=== PATIENT | male | born 1980 | race Two or more races ===

== ENCOUNTER 2024-10-28 17:34 | Inpatient (IN) | payer OTHER, BC ==
[~2024-10-28] VITALS: Ht 180.3 cm; Wt 173.7 kg
[2024-10-28] MEDS: HYDROcodone-ACET 10/325MG TAB PO ONE (18:13)
[2024-10-28] MEDS: KETOROLAC TROMETH 60MG/2ML VIAL IM ONE (18:13)
[2024-10-28 18:21] LABS: Basophils # (auto) 0 10 ^3/uL (0-0.2); Basophils % (auto) 0.6 % (0.0-2.0); Eosinophils # (auto) 0.2 10 ^3/uL (0-0.8); Eosinophils % (auto) 2.3 % (0.0-7.0); Hematocrit 46.1 % (41.0-53.0); Hemoglobin 15.8 g/dL (13.5-17.5); Lymphocytes # (auto) 1.8 10 ^3/uL (0.4-5.4); Lymphocytes % (auto) 21.8 % (10.0-50.0); Mean Corpuscular Hgb Conc. 34.2 g/dL (32.0-36.0); Mean Corpuscular Volume 84.8 fL (80.0-100.0); Monocytes # (auto) 0.7 10 ^3/uL (0-1.3); Monocytes % (auto) 8.8 % (0.0-12.0); Neutrophils # (auto) 5.3 10 ^3/uL (1.6-8.6); Neutrophils % (auto) 66.5 % (37.0-80.0); Nucleated Red Blood Cells % 0.1 %; Platelet Count (auto) 267 10^3/uL (140-450); Red Blood Cells 5.44 10^6/uL (4.5-5.90); Red Cell Distribution Width 14.7 % (11.8-14.3)
[2024-10-28 18:27] LABS: Chloride 106 mmol/L (98-107); Potassium 4.1 mmol/L (3.5-5.1); Sodium 143 mmol/L (136-145)
[2024-10-28 18:28] LABS: Anion Gap 11 (5-15); Carbon Dioxide 26 mmol/L (20-31)
[2024-10-28 18:33] LABS: BUN/Creatinine Ratio 9.6 (10.0-20.0); Blood Urea Nitrogen 12 mg/dL (9-23); Glucose 170 mg/dL (74-106)
--- NOTE | 2024-10-28 18:58 | DVH ---
Exam: CT CT AB PEL WO CON-NO ORAL OR IV History: Flank pain/kidney stone concerns Comparison Study: None TECHNIQUE: Multidetector CT of the abdomen was performed from lung bases to pubic symphysis. Imaging was performed without IV contrast. Axial, coronal and sagittal multiplanar reformats were obtained fr om the axial data set by the technologist. Radiation Dose Information: CT Dose: CTDI volume is 36.11 mGy. Dose-length product is 2271.73 mGy*cm FINDINGS: Evaluation of solid organs is limited due to lack of intravenous contrast use. Findings: Lung Bases: No acute or significant lung base finding. Normal heart size. No pleural or pericardial effusion. Liver: The liver is normal in size. No focal lesions. Gallbladder and Biliary Tree: Unremarkable Spleen: Unremarkable Pancreas: The pancreas is grossly normal in appearance. Adrenal Glands: Unremarkable Kidneys: Punctate nonobstructing calculus right kidney. 7-8 mm partially obstructing calculus mid lef t ureter. Bladder: Grossly unremarkable for degree of distention. Bowel: The stomach is grossly normal in appearance. Small bowel and colon are normal in caliber and d istribution. The appendix is not visualized; however, no secondary findings of acute appendicitis id entified. Ascites: Absent Lymphadenopathy: No mesenteric, retroperitoneal or periportal lymphadenopathy. Abdominal Wall and Mesentery: Unremarkable. Vasculature: The visualized abdominal aorta is normal in size and caliber. Evaluation of abdominal a nd pelvic vessels is limited due to lack of intravenous contrast. Pelvic Organs: Unremarkable Musculoskeletal: No aggressive focal bony lesions, acute fractures or dislocation. Soft tissues: Unremarkable IMPRESSION: 1. Punctate nonobstructing calculus right kidney 2. 7-8 mm partially obstructing calculus mid left ureter. 3. 4.6 cm fat containing left inguinal hernia. Radiation optimization: All CT scans at this facility use at least one of these dose optimization te chniques: automated exposure control mA and/or kV adjustment per patient size (includes targeted exa ms where dose is matched to clinical indication) or iterative reconstruction. HS:Y
--- NOTE | 2024-10-28 19:08 | ED.PDOC ---
General HPI Comments This patient is a pleasant but severely morbidly obese 44-year-old male who arrives the ED today for evaluation of left-sided flank pain concerns that began last night and have continued through today. Patient denies any history of kidney stones. Patient denies any fever nausea or vomiting. Patient denies any blood in his urine. Patient denies any known musculoskeletal concerns or lifting or movement injuries. Vital signs were stable at arrival. Chief Complaint: Flank Pain Time Seen by MD: 17:40 Reviewed notes: Nurses Notes Information Source: Patient Mode of Arrival: Ambulatory Severity: Moderate Inability to void: None Timing: Days Duration: Since onset Prehospital treatment: None Onset: Spontaneous Symptoms: None History of: None Location: (L)Flank associated signs and symptoms: Flank Pain Past Medical History PAST MEDICAL HISTORY: Denies Surgical History: Denies all surgeries Family History Family History: Reviewed,noncontributory to illness, No family hx of Cancer, No family hx of DM, No family hx of Heart iglesia, No family hx of HTN, No family hx ofKidney iglesia, No family hx of Liver iglesia, No family hx of Lung iglesia, No family hx of Stroke Social History Smoker: Non-Smoker Alcohol: Denies ETOH Use Drugs: Denies Drug Use Lives In: Home Constitutional: denies: chills, diaphoresis, fatigue, fever, malaise, sweats, weakness, others EENTM: denies: blurred vision, double vision, ear bleeding, ear discharge, ear drainage, ear pain, ear ringing, eye pain, eye redness, hearing loss, mouth pain, mouth swelling, nasal discharge, nose bleeding, nose congestion, nose pain, photophobia, tearing, throat pain, throat swelling, voice changes, others Respiratory: denies: cough, hemoptysis, orthopnea, SOB at rest, shortness of breath, SOB with excertion, stridor, wheezing, others Cardiovascular: denies: chest pain, dizzy spells, diaphoresis, Dyspnea on exertion, edema, irregular heart beat, left arm pain, lightheadedness, palpitations, PND, syncope, others Gastrointestinal: denies: abdomen distended, abdominal pain, blood streaked bowels, constipated, diarrhea, dysphagia, difficulty swallowing, hematemesis, melena, nausea, poor appetite, poor fluid intake, rectal bleeding, rectal pain, vomiting, others Genitourinary: reports: flank pain; denies: burning, dysuria, frequency, hematuria, incontinence, penile discharge, penile sore, pain, testicle pain, testicle swelling, urgency, others Neurological: denies: dizziness, fainting, headache, left sided numbness, left sided weakness, numbness, paresthesia, pre-existing deficit, right sided numbness, right sided weakness, seizure, speech problems, tingling, tremors, weakness, others Musculoskeletal: denies: back pain, gout, joint pain, joint swelling, muscle pain, muscle stiffness, neck pain, others Integumetry: denies: bruises, change in color, change in hair/nails, dryness, laceration, lesions, lumps, rash, wounds, others Allergic/Immunocompromised: denies: Difficulty Healing, Frequent Infections, Hives, Itching, others Hematologic/Lymphatic: denies: anemia, blood clots, easy bleeding, easy bruising, swollen glands, others Endocrine: denies: excessive hunger, excessive sweating, excessive thirst, excessive urination, flushing, intolerance to cold, intolerance to heat, unexplained weight gain, unexplained weight loss, others Psychiatric: denies: anxiety, bipolar disorder, depression, hopeless, panic disorder, schizophrenia, sleepless, suicidal, others Physical Exam General Appearance: Moderate Distress (Due to left-sided flank pain concerns.), Obese HEENT: Normal ENT Inspection, Pharynx Normal, TMs Normal Neck: Full Range of Motion, Non-Tender, Normal, Normal Inspection Respiratory: Chest Non-Tender, Lungs Clear, No Accessory Muscle Use, No Respiratory Distress, Normal Breath Sounds Cardiovascular: No Edema, No JVD, No Murmur, No Gallop, Normal Peripheral Pul ses, Regular Rate/Rhythm Breast Exam: Deferred Gastrointestinal: Other (Left-sided flank pain that has diffuse and extending into the left-sided abdomen. Difficult to assess due to body habitus.) Genitalia: Deferred Pelvic: Deferred Rectal: Deferred Extremities: No calf tenderness, Normal capillary refill, Normal inspection, Normal range of motion, Non-tender, No pedal edema Neurologic: Alert, No Motor Deficits, Normal Affect, Normal Mood, No Sensory Deficits Cerebellar Function: Normal Reflexes: Normal Skin: Dry, Normal Color, Warm Lymphatic: No Adenopathy Was a procedure done? Was a procedure done?: No Differential Diagnosis Kidney stone (Female): Other (Kidney stone, pyelonephritis, UTI, musculoskele nola concern, sepsis, electrolyte abnormality) X-Ray, Labs, Meds, VS Vital Signs Date Time Temp Pulse Resp B/P (MAP) Pulse Ox O2 Delivery O2 Flow Rate FiO2 10/28/24 17:40 97.5 68 20 144/83 (103) 97.5 Lab Test 10/28/24 18:02 Range/Units White Blood Count 8.0 4.4-10.8 10^3/uL Red Blood Count 5.44 4.5-5.90 10^6/uL Hemoglobin 15.8 13.5-17.5 g/dL Hematocrit 46.1 41.0-53.0 % Mean Corpuscular Volume 84.8 80.0-100.0 fL Mean Corpuscular Hemoglobin 29.0 28.0-32.0 pg Mean Corpuscular Hemoglobin Concent 34.2 32.0-36.0 g/dL Red Cell Distribution Width 14.7 H 11.8-14.3 % Platelet Count 267 140-450 10^3/uL Mean Platelet Volume 9.1 6.9-10.8 fL Neutrophils (%) (Auto) 66.5 37.0-80.0 % Lymphocytes (%) (Auto) 21.8 10.0-50.0 % Monocytes (%) (Auto) 8.8 0.0-12.0 % Eosinophils (%) (Auto) 2.3 0.0-7.0 % Basophils (%) (Auto) 0.6 0.0-2.0 % Neutrophils # (Auto) 5.3 1.6-8.6 10 ^3/uL Lymphocytes # (Auto) 1.8 0.4-5.4 10 ^3/uL Monocytes # (Auto) 0.7 0-1.3 10 ^3/uL Eosinophils # (Auto) 0.2 0-0.8 10 ^3/uL Basophils # (Auto) 0 0-0.2 10 ^3/uL Nucleated Red Blood Cells 0.1 % Sodium Level 143 136-145 mmol/L Potassium Level 4.1 3.5-5.1 mmol/L Chloride Level 106 98-107 mmol/L Carbon Dioxide Level 26 20-31 mmol/L Anion Gap 11 5-15 Blood Urea Nitrogen 12 9-23 mg/dL Creatinine 1.25 0.700-1.30 mg/dL Glomerular Filtration Rate Calc 72 >90 mL/min BUN/Creatinine Ratio 9.6 L 10.0-20.0 Serum Glucose 170 H 74-106 mg/dL Calcium Level 10.0 8.7-10.4 mg/dL Current Medications Medications (Trade) Dose Ordered Sig/Jesenia Route Start Time Stop Time Status Last Admin Ketorolac Tromethamine (Toradol Injection) 30 mg ONCE ONCE IM 10/28/24 18:00 10/28/24 18:01 DC 10/28/24 18:13 Acetaminophen/ Hydrocodone Bitart ([place] 10/325MG Tab) 1 tab ONCE ONCE PO 10/28/24 18:00 10/28/24 18:01 DC 10/28/24 18:13 X-Ray, Labs, Meds, VS Comment All studies performed the ED were evaluated by me personally. Serum laboratorie s were unremarkable for any systemic concerns. CT evaluation of abdomen confirmed a left-sided occlusive stone. Advised patient of the findings in the need for admission. Patient will be admitted for management of his kidney stone concerns. Time of 1ST Reevaluation: 19:07 Reevaluation 1ST: Improved Consultation: PCP Patient Education/Counseling: Diagnosis, Treatment Family Education/Counseling: Diagnosis, Treatment Departure 1 Departure Time of Disposition: 19:07 Impression: Primary Impression: Kidney stone on left side Disposition: ADMITTED INPATIENT Condition: Stable Discharged With: Self Critical Care Note Critical Care Time?: No Stability Stability form required: No Heart Score Heart Score: Heart Score Response (Comments) Value History N/A 0 EKG N/A 0 Age N/A 0 Risk Factors N/A 0 Troponin N/A 0 Total 0 RIDDHI HAGER PAC Oct 28, 2024 19:08
[2024-10-28] MEDS ORDERED: ACETAMINOPHEN 325 MG TAB PO PRN (21:15)
[2024-10-28] MEDS ORDERED: DOCUSATE SOD 100 MG CAP PO PRN (21:15)
[2024-10-28] MEDS ORDERED: MORPHINE SULFATE INJ 2 MG/ml SYRG IV PRN ×2 (21:15→22:00)
--- NOTE | 2024-10-28 21:56 | DVHHP2 ---
History of Present Illness Reason for Visit: Kidney stone on left side History of Present Illness The patient is a 44-year-old male morbidly obese who denies past medical history presented to [facility] ED with complaint of left-sided flank pain. Patient reports symptoms progressively get worse with severe left-sided flank pain, nonradiating, rating 8/10 numeric scale, getting worse that prompted this visit. Patient was seen and evaluated in the ED, laboratory data shows WBC 8.0, platelets 267, sodium 143, potassium 4.1, BUN 12, creatinine 1.25, GFR 72, glucose 170, calcium 10.0, blood pressure 127/75, heart rate 68, temperature 97.8 F, O2 saturation 96% on room air. Abdomen/pelvis CT revealing punctuate nonobstructing calculus right kidney, 7-8 mm partially obstructing calculus mid left ureter, 4.6 cm fat stranding left inguinal hernia. Patient was given Toradol 30 mg IM x1, please see medication orders section in the computer. On my assessment, patient denied chest pain, no headache, no dizziness, no diaphoresis, no shortness of breath, no diarrhea, no nausea, no vomiting, no fever, no chills. Patient was admitted for further evaluation and medical management. Past Medical History Denies past medical history Past Surgical History Denies all surgeries Family History Reviewed, noncontributory to the management of this case. Past Social History The patient lives at home, denies smoking, alcohol or illicit drugs abuse. Review of Systems Constitutional: No: Fever, Chills, Sweats, Weakness, Malaise, Other Eyes: No: Pain, Vision change, Conjunctivae inflammation, Eyelid inflammation, Other, Redness ENT: No: Ear pain, Ear discharge, Nose pain, Nose discharge, Nose congestion, Mouth pain, Mouth swelling, Throat pain, Throat swelling, Other Respiratory: No: Cough, Dry, Shortness of breath, SOB with excertion, Wheezing, Hemoptysis, Pleuritic Pain, Sputum, Wheezing, Other Cardiovascular: No: Chest Pain, Palpitations, Orthopnea, Paroxysmal Noc. Dyspnea, Edema, Lt Headedness, Other Gastrointestinal: No: Nausea, Vomiting, Abdominal Pain, Diarrhea, Constipation, Melena, Hematochezia, Other Genitourinary: No Dysuria, No Frequency, No Incontinence, No Hematuria, No Retention; Other (Left flank pain) Musculoskeletal: No: other, neck pain, shoulder pain, arm pain, back pain, hand pain, leg pain, foot pain Skin: No: Rash, Lesions, Jaundice, Bruising, Other Neurological: No: Weakness, Numbness, Incoordination, Change in speech, Confusion, Seizures, Other Allergies: Coded Allergies: NO KNOWN ALLERGIES (Unverified , 10/28/24) Medications Current Medications Medications Dose Ordered Sig/Jesenia Route Start Time Stop Time Status Last Admin Dose Admin Acetaminophen/ Hydrocodone Bitart 1 tab Q4HP PRN PO 10/28/24 21:15 UNV Ondansetron HCl 4 mg Q4HP PRN IV 10/28/24 21:15 UNV Docusate Sodium 100 mg BIDPRN PRN PO 10/28/24 21:15 UNV Acetaminophen 650 mg Q6HP PRN PO 10/28/24 21:15 UNV Morphine Sulfate 2 mg Q4HPRN PRN IV 10/28/24 21:15 UNV Sodium Chloride 1,000 ml @ 75 mls/hr [id number] IV 10/28/24 21:15 UNV Exam Vital Signs Vital Signs Date Time Temp Pulse Resp B/P (MAP) Pulse Ox O2 Delivery O2 Flow Rate FiO2 10/28/24 21:43 98.0 78 18 123/82 (96) 95 98.0 General Appearance: Alert, Oriented X3, Cooperative, No acute distress HEENT: Atraumatic, PERRLA, EOMI, Mucous membr. moist/pink Respiratory: Normal air movement Cardiovascular: Regular rate, Normal S1, Normal S2, No murmurs Abdominal: Normal bowel sounds, Soft, No hepatospenomegaly, No masses, Other (Reports tenderness) Extremities: No clubbing, No cyanosis, No edema, Normal pulses, No tenderness/swelling Skin: No rashes, No breakdown, No significant lesion Neuro: Normal gait, Normal speech, Strength at 5/5 X4 ext, Normal tone, Sensation intact, Cranial nerves 3-12 NL Psych/Mental Status: Mental status NL, Mood NL Labs/Xrays Labs Test 10/28/24 18:09 10/28/24 18:02 Range/Units White Blood Count 8.0 4.4-10.8 10^3/uL Red Blood Count 5.44 4.5-5.90 10^6/uL Hemoglobin 15.8 13.5-17.5 g/dL Hematocrit 46.1 41.0-53.0 % Mean Corpuscular Volume 84.8 80.0-100.0 fL Mean Corpuscular Hemoglobin 29.0 28.0-32.0 pg Mean Corpuscular Hemoglobin Concent 34.2 32.0-36.0 g/dL Red Cell Distribution Width 14.7 H 11.8-14.3 % Platelet Count 267 140-450 10^3/uL Mean Platelet Volume 9.1 6.9-10.8 fL Neutrophils (%) (Auto) 66.5 37.0-80.0 % Lymphocytes (%) (Auto) 21.8 10.0-50.0 % Monocytes (%) (Auto) 8.8 0.0-12.0 % Eosinophils (%) (Auto) 2.3 0.0-7.0 % Basophils (%) (Auto) 0.6 0.0-2.0 % Neutrophils # (Auto) 5.3 1.6-8.6 10 ^3/uL Lymphocytes # (Auto) 1.8 0.4-5.4 10 ^3/uL Monocytes # (Auto) 0.7 0-1.3 10 ^3/uL Eosinophils # (Auto) 0.2 0-0.8 10 ^3/uL Basophils # (Auto) 0 0-0.2 10 ^3/uL Nucleated Red Blood Cells 0.1 % Sodium Level 143 136-145 mmol/L Potassium Level 4.1 3.5-5.1 mmol/L Chloride Level 106 98-107 mmol/L Carbon Dioxide Level 26 20-31 mmol/L Anion Gap 11 5-15 Blood Urea Nitrogen 12 9-23 mg/dL Creatinine 1.25 0.700-1.30 mg/dL Glomerular Filtration Rate Calc 72 >90 mL/min BUN/Creatinine Ratio 9.6 L 10.0-20.0 Serum Glucose 170 H 74-106 mg/dL Calcium Level 10.0 8.7-10.4 mg/dL PATIENT: MARSHAL DIAZ ACCT: [id number] UNIT: [id number] : 1980 LOC: ER ROOM / BED: / AGE / SEX: 44 / M ADM STATUS: REG ER SERVICE [id number] ORDERING PHYSICIAN: RIDDHI HAGER PAC PROCEDURE(s): ABPL - CT AB PEL WO CON-NO ORAL OR IV REASON: Flank pain/kidney stone concerns ORDER NUMBER(s): [id number], ACCESSION NUMBER(s): [id number] Exam: CT CT AB PEL WO CON-NO ORAL OR IV History: Flank pain/kidney stone concerns Comparison Study: None TECHNIQUE: Multidetector CT of the abdomen was performed from lung bases to pubic symphysis. Imaging was performed without IV contrast. Axial, coronal and sagittal multiplanar reformats were obtained from the axial data set by the technologist. Radiation Dose Information: CT Dose: CTDI volume is 36.11 mGy. Dose-length product is 2271.73 mGy*cm FINDINGS: Evaluation of solid organs is limited due to lack of intravenous contrast use. Findings: Lung Bases: No acute or significant lung base finding. Normal heart size. No pleural or pericardial effusion. Liver: The liver is normal in size. No focal lesions. Gallbladder and Biliary Tree: Unremarkable Spleen: Unremarkable Pancreas: The pancreas is grossly normal in appearance. Adrenal Glands: Unremarkable Kidneys: Punctate nonobstructing calculus right kidney. 7-8 mm partially obstructing calculus mid left ureter. Bladder: Grossly unremarkable for degree of distention. Bowel: The stomach is grossly normal in appearance. Small bowel and colon are normal in caliber and distribution. The appendix is not visualized; however, no secondary findings of acute appendicitis identified. Ascites: Absent Lymphadenopathy: No mesenteric, retroperitoneal or periportal lymphadenopathy. Abdominal Wall and Mesentery: Unremarkable. Vasculature: The visualized abdominal aorta is normal in size and caliber. Eval uation of abdominal and pelvic vessels is limited due to lack of intravenous contrast. Pelvic Organs: Unremarkable Musculoskeletal: No aggressive focal bony lesions, acute fractures or dislocation. Soft tissues: Unremarkable IMPRESSION: 1. Punctate nonobstructing calculus right kidney 2. 7-8 mm partially obstructing calculus mid left ureter. 3. 4.6 cm fat containing left inguinal hernia. Assessment/Plan Assessment/Plan Acute abdominal pain Hyperglycemia Morbid obesity Kidney stone on left side Plan 1. Admit to med surge unit 2. Breathing treatment 3. Pain control management 4. Management of fluids and electrolytes 5. Consultation for urology/hospitalist 6. Diagnostic tests abdomen/pelvis CT 7. DVT prophylaxis-on aspirin 8. Repeat labs CBC, CMP in a.m. 9. Continue with current medical management 10. Treatment plan discussed with patient and RN. Patient verbalized understanding. Plan discussed with: Patient, Other (RN) My Orders Orders - DARREL ISSA DNP Procedure Category Date Status Time * Urology Consult CONS 10/28/24 Transmitted 21:06 Allergies GORGE 10/28/24 In Process 21:06 Code Status CODE 10/28/24 Transmitted 21:06 2 Gm Sodium Diet DIET 10/29/24 Transmitted Breakfast Oxygen Per Hour RT 10/28/24 Transmitted 21:06 Hydrocodone-Acet PHA 10/28/24 Logged 5/325mg Tab ([place] 21:15 Ondansetron Hcl PHA 10/28/24 Logged (Zofran) 21:15 Docusate Sodium PHA 10/28/24 Logged Capsule (Colace 21:15 Complete Blood Count LAB 10/29/24 Verified 04:00 Comprehensive LAB 10/29/24 Verified Metabolic Panel 04:00 Condition: Serious GORGE 10/28/24 In Process 21:06 Acetaminophen Tablet PHA 10/28/24 Logged (Tylenol Tablet) 21:15 Bedrest With Bathroom GORGE 10/28/24 In Process Privileg 21:06 Morphine Sulfate PHA 10/28/24 Logged Injection 21:15 Sequential GORGE 10/28/24 In Process Compression Device Sod Chl 0.45% (Sodium PHA 10/28/24 Logged Chloride 0.45% Via 21:15 Problem List: (1) Acute abdominal pain (2) Hyperglycemia (3) Morbid obesity (4) Kidney stone on left side Date of Service: Oct 28, 2024 Billing Provider: DARREL ISSA DNP Common Visit Codes: 21703-VAVEAKP INP/OBS CARE (HIGH) DARREL ISSA DNP Oct 28, 2024 21:56
[2024-10-28] MEDS ORDERED: NITROGLYCERIN 0.4 MG SL TAB SL PRN (22:00)
[2024-10-28 22:23] LABS: Urine Bacteria FEW /hpf (None Seen); Urine Blood 3+ /uL (Negative); Urine Budding Yeast OCCASIONAL /hpf (None Seen); Urine Clarity Turbid (Clear); Urine Color Light-Orange (Yellow); Urine Protein, UAD 1+ (Negative); Urine Specific Gravity 1.021 (1.001-1.035); Urine Squamous Epithelial Cell None Seen /hpf (<5); Urine Urobilinogen Normal (Negative); Urine WBC 4 /HPF (0-3); Urine pH 5.5 (5.0-9.0)
[2024-10-28 23:17] VITALS: BP 140/78; PULSE 95; RESP 19; TEMP 98.1; O2SAT 96
[2024-10-29] VITALS (8 sets, daily range): BP systolic 106–135; BP diastolic 63–77; PULSE 70–99; RESP 18–19; TEMP 98–98.5; O2SAT 94–96
[2024-10-29] MEDS: SOD CHL 0.45% 1,000 ML IV SCH (00:01)
[2024-10-29] MEDS: HYDROcodone-ACET 5/325MG TAB PO PRN (00:07)
[2024-10-29 05:16] LABS: Basophils # (auto) 0.1 10 ^3/uL (0-0.2); Basophils % (auto) 0.6 % (0.0-2.0); Eosinophils # (auto) 0.1 10 ^3/uL (0-0.8); Eosinophils % (auto) 1.2 % (0.0-7.0); Hemoglobin 14.8 g/dL (13.5-17.5); Lymphocytes # (auto) 1.8 10 ^3/uL (0.4-5.4); Lymphocytes % (auto) 18.4 % (10.0-50.0); Mean Corpuscular Hemoglobin 29.2 pg (28.0-32.0); Mean Corpuscular Hgb Conc. 34.4 g/dL (32.0-36.0); Mean Corpuscular Volume 85.1 fL (80.0-100.0); Monocytes # (auto) 0.8 10 ^3/uL (0-1.3); Monocytes % (auto) 7.8 % (0.0-12.0); Neutrophils # (auto) 7.1 10 ^3/uL (1.6-8.6); Nucleated Red Blood Cells % 0.1 %; Platelet Count (auto) 240 10^3/uL (140-450); Red Blood Cells 5.05 10^6/uL (4.5-5.90); Red Cell Distribution Width 14.4 % (11.8-14.3); White Blood Cell 9.9 10^3/uL (4.4-10.8)
[2024-10-29 05:40] LABS: Albumin 4.5 g/dL (3.2-4.8); Alkaline Phosphatase 91 U/L (46-116); Anion Gap 11 (5-15); Aspartate Aminotransferase 31 U/L (13-40); BUN/Creatinine Ratio 10.6 (10.0-20.0); Bilirubin, Total 0.8 mg/dL (0.2-1.0); Blood Urea Nitrogen 13 mg/dL (9-23); Calcium 9.9 mg/dL (8.7-10.4); Carbon Dioxide 27 mmol/L (20-31); Chloride 105 mmol/L (98-107); Potassium 3.9 mmol/L (3.5-5.1); Sodium 143 mmol/L (136-145); Total Protein 7.2 g/dL (5.7-8.2)
[2024-10-29 05:48] LABS: Alanine Aminotransferase 40 U/L (7-40); Glucose 107 mg/dL (74-106)
--- NOTE | 2024-10-29 13:19 | DVHINCON2 ---
Date of service: Oct 29, 2024 Referring Physician Hospitalist Reason for Consultation 7 mm left mid ureteral calculus with partial obstruction History of Present Illness Morbidly obese 44-year-old male with 8 mm left ureteral stone has left-sided flank pain. Patient denies any history of kidney stones. Patient denies any fever nausea or vomiting. Patient denies any blood in his urine. Patient denies any known musculoskeletal concerns or lifting or movement injuries. Vital signs were stable at arrival. Chief Complaint: Flank Pain Reviewed notes: Nurses Notes Information Source: Patient Mode of Arrival: Ambulatory Severity: Moderate Inability to void: None Timing: Days Duration: Since onset Prehospital treatment: None Onset: Spontaneous Symptoms: None History of: None Location: (L)Flank associated signs and symptoms: Flank Pain Past Medical History Obesity Family History: Cardiovascular disease G8 FATHER Allergies: Coded Allergies: NO KNOWN ALLERGIES (Unverified , 10/28/24) Home Meds No Active Prescriptions or Reported Meds Current Medications Current Medications Medications (Trade) Dose Ordered Sig/Jesenia Route PRN Reason Start Time Stop Time Status Last Admin Acetaminophen/ Hydrocodone Bitart ([place] 5/325MG Tab) 1 tab Q4HP PRN PO MODERATE PAIN (4-6 PAIN SCALE) 10/28/24 21:15 10/29/24 12:58 Ondansetron HCl (Zofran) 4 mg Q4HP PRN IV NAUSEA / VOMITING 10/28/24 21:15 Docusate Sodium (Colace Capsule) 100 mg BIDPRN PRN PO FOR CONSTIPATION 10/28/24 21:15 Acetaminophen (Tylenol Tablet) 650 mg Q6HP PRN PO PAIN SCALE 1-3 OR TEMP>100.4 10/28/24 21:15 Morphine Sulfate 2 mg Q4HPRN PRN IV SEVERE PAIN (7-10 PAIN SCALE) 10/28/24 21:15 Sodium Chloride 1,000 ml @ 75 mls/hr [id number] IV 10/28/24 21:15 10/29/24 10:35 Nitroglycerin (Ntrostat Sublingual) 0.4 mg Q5MINP PRN SL FOR CHEST PAIN 10/28/24 22:00 Morphine Sulfate 2 mg Q30M PRN IV FOR CHEST PAIN 10/28/24 22:00 Review of Systems Constitutional: denies: chills, diaphoresis, fatigue, fever, malaise, sweats, weakness, others EENTM: denies: blurred vision, double vision, ear bleeding, ear discharge, ear drainage, ear pain, ear ringing, eye pain, eye redness, hearing loss, mouth pain, mouth swelling, nasal discharge, nose bleeding, nose congestion, nose pain, photophobia, tearing, throat pain, throat swelling, voice changes, others Respiratory: denies: cough, hemoptysis, orthopnea, SOB at rest, shortness of breath, SOB with excertion, stridor, wheezing, others Cardiovascular: denies: chest pain, dizzy spells, diaphoresis, Dyspnea on exertion, edema, irregular heart beat, left arm pain, lightheadedness, palpitations, PND, syncope, others Gastrointestinal: denies: abdomen distended, abdominal pain, blood streaked bowels, constipated, diarrhea, dysphagia, difficulty swallowing, hematemesis, melena, nausea, poor appetite, poor fluid intake, rectal bleeding, rectal pain, vomiting, others Genitourinary: reports: flank pain; denies: burning, dysuria, frequency, hematuria, incontinence, penile discharge, penile sore, pain, testicle pain, testicle swelling, urgency, others Neurological: denies: dizziness, fainting, headache, left sided numbness, left sided weakness, numbness, paresthesia, pre-existing deficit, right sided numbness, right sided weakness, seizure, speech problems, tingling, tremors, weakness, others Musculoskeletal: denies: back pain, gout, joint pain, joint swelling, muscle pain, muscle stiffness, neck pain, others Integumetry: denies: bruises, change in color, change in hair/nails, dryness, laceration, lesions, lumps, rash, wounds, others Allergic/Immunocompromised: denies: Difficulty Healing, Frequent Infections, Hives, Itching, others Hematologic/Lymphatic: denies: anemia, blood clots, easy bleeding, easy bruising, swollen glands, others Endocrine: denies: excessive hunger, excessive sweating, excessive thirst, excessive urination, flushing, intolerance to cold, intolerance to heat, unexplained weight gain, unexplained weight loss, others Psychiatric: denies: anxiety, bipolar disorder, depression, hopeless, panic disorder, schizophrenia, sleepless, suicidal, others Vital Signs Vital Signs Date Time Temp Pulse Resp B/P (MAP) Pulse Ox O2 Delivery O2 Flow Rate FiO2 10/29/24 08:42 98.2 83 18 123/74 (90) 95 98.2 10/28/24 23:17 Room Air* 0 21 Physical Exam wt: 382# General Appearance: Moderate Distress (Due to left-sided flank pain concerns.), Obese HEENT: Normal ENT Inspection, Pharynx Normal, TMs Normal Neck: Full Range of Motion, Non-Tender, Normal, Normal Inspection Respiratory: Chest Non-Tender, Lungs Clear, No Accessory Muscle Use, No Respiratory Distress, Normal Breath Sounds Cardiovascular: No Edema, No JVD, No Murmur, No Gallop, Normal Peripheral Pulses, Regular Rate/Rhythm Breast Exam: Deferred Gastrointestinal: Other (Left-sided flank pain that has diffuse and extending into the left-sided abdomen. Difficult to assess due to body habitus.) Genitalia: Deferred Pelvic: Deferred Rectal: Deferred Extremities: No calf tenderness, Normal capillary refill, Normal inspection, Normal range of motion, Non-tender, No pedal edema Neurologic: Alert, No Motor Deficits, Normal Affect, Normal Mood, No Sensory Deficits Cerebellar Function: Normal Reflexes: Normal Skin: Dry, Normal Color, Warm Lymphatic: No Adenopathy Labs/Diagnostic Data Labs Test 10/29/24 04:30 10/28/24 18:09 Range/Units White Blood Count 9.9 4.4-10.8 10^3/uL Red Blood Count 5.05 4.5-5.90 10^6/uL Hemoglobin 14.8 13.5-17.5 g/dL Hematocrit 43.0 41.0-53.0 % Mean Corpuscular Volume 85.1 80.0-100.0 fL Mean Corpuscular Hemoglobin 29.2 28.0-32.0 pg Mean Corpuscular Hemoglobin Concent 34.4 32.0-36.0 g/dL Red Cell Distribution Width 14.4 H 11.8-14.3 % Platelet Count 240 140-450 10^3/uL Mean Platelet Volume 9.0 6.9-10.8 fL Neutrophils (%) (Auto) 72.0 37.0-80.0 % Lymphocytes (%) (Auto) 18.4 10.0-50.0 % Monocytes (%) (Auto) 7.8 0.0-12.0 % Eosinophils (%) (Auto) 1.2 0.0-7.0 % Basophils (%) (Auto) 0.6 0.0-2.0 % Neutrophils # (Auto) 7.1 1.6-8.6 10 ^3/uL Lymphocytes # (Auto) 1.8 0.4-5.4 10 ^3/uL Monocytes # (Auto) 0.8 0-1.3 10 ^3/uL Eosinophils # (Auto) 0.1 0-0.8 10 ^3/uL Basophils # (Auto) 0.1 0-0.2 10 ^3/uL Nucleated Red Blood Cells 0.1 % Sodium Level 143 136-145 mmol/L Potassium Level 3.9 3.5-5.1 mmol/L Chloride Level 105 98-107 mmol/L Carbon Dioxide Level 27 20-31 mmol/L Anion Gap 11 5-15 Blood Urea Nitrogen 13 9-23 mg/dL Creatinine 1.23 0.700-1.30 mg/dL Glomerular Filtration Rate Calc 74 >90 mL/min BUN/Creatinine Ratio 10.6 10.0-20.0 Serum Glucose 107 H 74-106 mg/dL Hemoglobin A1c 6.5 H <5.7 % A1C Calcium Level 9.9 8.7-10.4 mg/dL Total Bilirubin 0.8 0.2-1.0 mg/dL Aspartate Amino Transferase (AST) 31 13-40 U/L Alanine Aminotransferase (ALT) 40 7-40 U/L Alkaline Phosphatase 91 46-116 U/L Total Protein 7.2 5.7-8.2 g/dL Albumin 4.5 3.2-4.8 g/dL Urine Color Light-orange Yellow Urine Clarity Turbid H Clear Urine pH 5.5 5.0-9.0 Urine Specific [place] 1.021 1.001-1.035 Urine Protein 1+ H Negative Urine Ketones Negative Negative Urine Blood 3+ H Negative /uL Urine Nitrite Negative Negative Urine Bilirubin Negative Negative Urine Urobilinogen Normal Negative mg/dL Urine Leukocyte Esterase Negative Negative /uL Urine RBC 245 0 - 3 /hpf Urine Microscopic WBC 4 H 0-3 /HPF Urine Squamous Epithelial Cells None seen <5 /hpf Urine Bacteria Few H None Seen /hpf Urine Yeast (Budding) Occasional None Seen /hpf Urine Glucose Trace Normal mg/dL PATIENT: MARSHAL DIAZ ACCT: [id number] UNIT: [id number] : 1980 LOC: ER ROOM / BED: / AGE / SEX: 44 / M ADM STATUS: REG ER SERVICE 175 ORDERING PHYSICIAN: RIDDHI HAGER PAC PROCEDURE(s): ABPL - CT AB PEL WO CON-NO ORAL OR IV REASON: Flank pain/kidney stone concerns ORDER NUMBER(s): [id number], ACCESSION NUMBER(s): [id number] Exam: CT CT AB PEL WO CON-NO ORAL OR IV History: Flank pain/kidney stone concerns Comparison Study: None TECHNIQUE: Multidetector CT of the abdomen was performed from lung bases to pubic symphysis. Imaging was performed without IV contrast. Axial, coronal and sagittal multiplanar reformats were obtained from the axial data set by the technologist. Radiation Dose Information: CT Dose: CTDI volume is 36.11 mGy. Dose-length product is 2271.73 mGy*cm FINDINGS: Evaluation of solid organs is limited due to lack of intravenous contrast use. Findings: Lung Bases: No acute or significant lung base finding. Normal heart size. No pleural or pericardial effusion. Liver: The liver is normal in size. No focal lesions. Gallbladder and Biliary Tree: Unremarkable Spleen: Unremarkable Pancreas: The pancreas is grossly normal in appearance. Adrenal Glands: Unremarkable Kidneys: Punctate nonobstructing calculus right kidney. 7-8 mm partially obstructing calculus mid left ureter. Bladder: Grossly unremarkable for degree of distention. Bowel: The stomach is grossly normal in appearance. Small bowel and colon are no rmal in caliber and distribution. The appendix is not visualized; however, no secondary findings of acute appendicitis identified. Ascites: Absent Lymphadenopathy: No mesenteric, retroperitoneal or periportal lymphadenopathy. Abdominal Wall and Mesentery: Unremarkable. Vasculature: The visualized abdominal aorta is normal in size and caliber. Evaluation of abdominal and pelvic vessels is limited due to lack of intravenous contrast. Pelvic Organs: Unremarkable Musculoskeletal: No aggressive focal bony lesions, acute fractures or dislocation. Soft tissues: Unremarkable IMPRESSION: 1. Punctate nonobstructing calculus right kidney 2. 7-8 mm partially obstructing calculus mid left ureter. 3. 4.6 cm fat containing left inguinal hernia. Radiation optimization: All CT scans at this facility use at least one of these dose optimization techniques: automated exposure control mA and/or kV adjustment per patient size (includes targeted exams where dose is matched to clinical indication) or iterative reconstruction. HS:Y ATED BY: JOSE MARIA PAGAN Jr., DO DICTATED DATE/TIME: 10/28/241854 SIGNED BY: JOSE MARIA PAGAN Jr., SIGNED DATE/TIME: 10/28/241854 CC: Assessment 8 mm Left mid ureteral stone Partial obstructive uropathy Left flank pain Plan/Recommendation Cystoscopy with left ureteral stent placement and left ESWL on 10/30/24 NPO after midnight Plan discussed with: Patient, Other ALECIA BARLOW MD Oct 29, 2024 13:19
[2024-10-29] MEDS ORDERED: MORPHINE SULFATE 4 MG/ML SYR/VIAL IV PRN (17:45)
[2024-10-29] MEDS: MORPHINE SULFATE 4 MG/ML SYR/VIAL IV PRN (17:52)
--- NOTE | 2024-10-29 19:28 | DVHPN2 ---
Subjective in bed and pain is better Reviewed: H&P, Labs Changes from previous H/P or p: No Changes Eyes: No Pain, No Vision change, No Conjunctivae inflammation, No Eyelid inflammation, No Other, No Redness ENT: No Ear pain, No Ear discharge, No Nose pain, No Nose discharge, No Nose congestion, No Mouth pain, No Mouth swelling, No Throat pain, No Throat swelling, No Other Cardiovascular: No Chest Pain, No Palpitations, No Orthopnea, No Paroxysmal Noc. Dyspnea, No Edema, No Lt Headedness, No Other Respiratory: No Cough, No Dry, No Shortness of breath, No SOB with excertion, No Wheezing, No Hemoptysis, No Pleuritic Pain, No Sputum, No Other Gastrointestinal: No Nausea, No Vomiting, No Abdominal Pain, No Diarrhea, No Constipation, No Melena, No Hematochezia, No Other Genitourinary: No Dysuria, No Frequency, No Incontinence, No Hematuria, No Retention; Other (Left flank pain) Musculoskeletal: No other, No neck pain, No shoulder pain, No arm pain, No back pain, No hand pain, No leg pain, No foot pain Skin: No Rash, No Lesions, No Jaundice, No Bruising, No Other Objective Vitals Vital Signs Date Time Temp Pulse Resp B/P (MAP) Pulse Ox O2 Delivery O2 Flow Rate FiO2 10/29/24 18:22 78 18 123/66 10/29/24 16:51 98.5 95 98.5 10/29/24 08:00 Room Air* 0 21 Intake/Output Intake and Output 10/29/24 07:00 Intake Total 1250 ml Balance 1250 ml Intake Oral 800 ml IV Total 450 ml # Voids 1 General Appearance: Alert, Oriented X3 Cardiovascular: Regular rate, Normal S2 Medications Current Medications Medications Dose Ordered Sig/Jesenia Route Start Time Stop Time Status Last Admin Dose Admin Acetaminophen/ Hydrocodone Bitart 1 tab Q4HP PRN PO 10/28/24 21:15 10/29/24 12:58 1 TAB Ondansetron HCl 4 mg Q4HP PRN IV 10/28/24 21:15 Docusate Sodium 100 mg BIDPRN PRN PO 10/28/24 21:15 Acetaminophen 650 mg Q6HP PRN PO 10/28/24 21:15 Sodium Chloride 1,000 ml @ 75 mls/hr [id number] IV 10/28/24 21:15 10/29/24 10:35 75 MLS/HR Nitroglycerin 0.4 mg Q5MINP PRN SL 10/28/24 22:00 Morphine Sulfate 2 mg Q4HPRN PRN IV 10/29/24 17:45 10/29/24 17:52 2 MG Morphine Sulfate 2 mg Q30M PRN IV 10/29/24 17:45 Laboratory Results Laboratory Tests 10/29/24 04:30 Chemistry Test 10/29/24 04:30 Albumin 4.5 g/dL (3.2-4.8) Calcium Level 9.9 mg/dL (8.7-10.4) Total Protein 7.2 g/dL (5.7-8.2) Coagulation Test 10/29/24 19:17 Prothrombin Time Pending Prothrombin Time INR Pending LFT Test 10/29/24 04:30 Alanine Aminotransferase (ALT) 40 U/L (7-40) Alkaline Phosphatase 91 U/L (46-116) Aspartate Amino Transferase (AST) 31 U/L (13-40) Total Bilirubin 0.8 mg/dL (0.2-1.0) HgA1c, TSH Test 10/29/24 04:30 Hemoglobin A1c 6.5 % A1C (<5.7) H Urinalysis Test 10/28/24 18:09 Urine Color Light-orange (Yellow) Urine Clarity Turbid (Clear) H Urine pH 5.5 (5.0-9.0) Urine Specific [place] 1.021 (1.001-1.035) Urine Protein 1+ (Negative) H Urine Ketones Negative (Negative) Urine Blood 3+ /uL (Negative) H Urine Nitrite Negative (Negative) Urine Bilirubin Negative (Negative) Urine Urobilinogen Normal mg/dL (Negative) Urine Leukocyte Esterase Negative /uL (Negative) Urine RBC 245 /hpf (0 - 3) Urine Microscopic WBC 4 /HPF (0-3) H Urine Squamous Epithelial Cells None seen /hpf (<5) Urine Bacteria Few /hpf (None Seen) H Urine Yeast (Budding) Occasional /hpf (None Urine Glucose Trace mg/dL (Normal) Assessment/Plan Assessment/Plan Acute abdominal pain Hyperglycemia Morbid obesity Kidney stone on left side Continue IV abx and IVF Urology pending Plan discussed with: Patient Date of Service: Oct 29, 2024 Billing Provider: LYN,GRICELDA J MD Common Visit Codes: [id number] INP/OBS CARE(HIGH) GRICELDA NICHOLSON MD Oct 29, 2024 19:28
[2024-10-29 19:55] LABS: Prothrombin Time 10.6 sec (9.3-11.8)
[2024-10-30] VITALS (8 sets, daily range): BP systolic 100–121; BP diastolic 61–79; PULSE 72–97; RESP 14–19; TEMP 97.6–98.5; O2SAT 92–98
[2024-10-30] MEDS: CIPROFLOXACIN 400MG/200ML 200 ML IV ONE (15:26)
[2024-10-30] MEDS ORDERED: fentaNYL CITRATE 5 ML ONE (16:55)
--- NOTE | 2024-10-30 17:28 | DVHNC2 ---
Procedure - OPERATIVE REPORT Pre-op. Diagnosis: Ureteral Stone - LEFT Hydronephrosis - LEFT Flank Pain - LEFT Post-op. Diagnosis: Same as pre-op diagnosis Operation: Extracorporeal Shockwave Lithotripsy - LEFT Cystoscopy, Ureteral stent placement - LEFT Anesthesia: General Indications: Informed Consent: Options were discussed. Treatments can include conservative therapy, Extra-corporeal shockwave therapy (ESWL), Ureteroscopy with laser lithotripsy vs extraction, PCNL (percutaneous nephrolithotomy); with or without the use of Stents or retrograde pyelography. Corresponding advantages and disadvantages were also discussed. Questions were addressed. Patient wishes to proceed with left ESWL and possible cystoscopy with left ureteral stent placement. Risks and benefits of the surgery were reviewed with patient which include but are not limited to infection, bleeding, urosepsis, renal hemorrhage/hematoma formation, ureteral perforation, ureteral stricture formation, need for further surgery if stone does not break, ureteral obstruction from stone fragments, cardiac arrthymia and risks of anesthesia. Despite these risks, patient wishes to proceed with the surgery. Patient fully understood and signed the consent. Details of Procedure: Under satisfactory anesthesia, the patient was positioned on the lithotripsy table. Using fluoroscopy the left ureteral stone was localized. Starting at low energy levels, shockwave treatment was commenced. The energy level was gradually increased and stone was fragmented. Once the treatment was completed, patient was then positioned in dorsal lithotomy position, prep and draped under standard fashion and cystoscopy with a 22Fr rigid cystoscope was performed. The left ureteral orifice was cannulated with a sensor tip guidewire and advanced into the left renal pelvis under fluroscopy. A [address] left Ureteral stent was then placed over the wire under Fluoroscopic and cystoscopic guidance. A good curl was seen in the kidney under fluorscopy and a good curl was seen in the bladder under direct visualization. The bladder was emptied and the cystoscope was taken out. General anesthesia was reversed, the patient was then taken off the lithotripsy table and sent to re covery room in stable condition. Specimens: None Complications: None Findings: Stone Laterality: Left Stone Location: Ureter- mid 7 mm Shocks Delivered: 2000 Max Power settin Fragmentation Quality: diffiicult to evaluate due to patient's body habitus. Ureteral stent size & length: [address] left ureteral stent Notes: Patient will need cystoscopy with left URSLL in 2-4 weeks ALECIA BARLOW MD Oct 30, 2024 17:28
--- NOTE | 2024-10-30 17:43 | DVHPN2 ---
Subjective in bed and pain is better Reviewed: H&P, Labs Changes from previous H/P or p: No Changes Eyes: No Pain, No Vision change, No Conjunctivae inflammation, No Eyelid inflammation, No Other, No Redness ENT: No Ear pain, No Ear discharge, No Nose pain, No Nose discharge, No Nose congestion, No Mouth pain, No Mouth swelling, No Throat pain, No Throat swelling, No Other Cardiovascular: No Chest Pain, No Palpitations, No Orthopnea, No Paroxysmal Noc. Dyspnea, No Edema, No Lt Headedness, No Other Respiratory: No Cough, No Dry, No Shortness of breath, No SOB with excertion, No Wheezing, No Hemoptysis, No Pleuritic Pain, No Sputum, No Other Gastrointestinal: No Nausea, No Vomiting, No Abdominal Pain, No Diarrhea, No Constipation, No Melena, No Hematochezia, No Other Genitourinary: No Dysuria, No Frequency, No Incontinence, No Hematuria, No Retention; Other (Left flank pain) Musculoskeletal: No other, No neck pain, No shoulder pain, No arm pain, No back pain, No hand pain, No leg pain, No foot pain Skin: No Rash, No Lesions, No Jaundice, No Bruising, No Other Objective Vitals Vital Signs Date Time Temp Pulse Resp B/P (MAP) Pulse Ox O2 Delivery O2 Flow Rate FiO2 10/30/24 13:10 86 18 105/62 10/30/24 13:00 98.5 93 98.5 10/30/24 07:30 Room Air* 0 21 Intake/Output Intake and Output 10/30/24 07:00 Intake Total 1375 ml Balance 1375 ml Intake Oral 1375 ml # Voids 8 # Bowel Movements 2 General Appearance: Alert, Oriented X3 Cardiovascular: Regular rate, Normal S2 Medications Current Medications Medications Dose Ordered Sig/Jesenia Route Start Time Stop Time Status Last Admin Dose Admin Acetaminophen/ Hydrocodone Bitart 1 tab Q4HP PRN PO 10/28/24 21:15 10/29/24 12:58 1 TAB Ondansetron HCl 4 mg Q4HP PRN IV 10/28/24 21:15 Docusate Sodium 100 mg BIDPRN PRN PO 10/28/24 21:15 Acetaminophen 650 mg Q6HP PRN PO 10/28/24 21:15 Sodium Chloride 1,000 ml @ 75 mls/hr [id number] IV 10/28/24 21:15 10/29/24 23:55 75 MLS/HR Nitroglycerin 0.4 mg Q5MINP PRN SL 10/28/24 22:00 Morphine Sulfate 2 mg Q4HPRN PRN IV 10/29/24 17:45 10/30/24 12:38 2 MG Morphine Sulfate 2 mg Q30M PRN IV 10/29/24 17:45 Laboratory Results Laboratory Tests 10/29/24 04:30 Coagulation Test 10/29/24 19:17 Prothrombin Time 10.6 sec (9.3-11.8) Prothrombin Time INR 1.00 (0.9-1.15) Urinalysis Test 10/28/24 18:09 Urine Color Light-orange (Yellow) Urine Clarity Turbid (Clear) H Urine pH 5.5 (5.0-9.0) Urine Specific [place] 1.021 (1.001-1.035) Urine Protein 1+ (Negative) H Urine Ketones Negative (Negative) Urine Blood 3+ /uL (Negative) H Urine Nitrite Negative (Negative) Urine Bilirubin Negative (Negative) Urine Urobilinogen Normal mg/dL (Negative) Urine Leukocyte Esterase Negative /uL (Negative) Urine RBC 245 /hpf (0 - 3) Urine Microscopic WBC 4 /HPF (0-3) H Urine Squamous Epithelial Cells None seen /hpf (<5) Urine Bacteria Few /hpf (None Seen) H Urine Yeast (Budding) Occasional /hpf (None Urine Glucose Trace mg/dL (Normal) Assessment/Plan Assessment/Plan Acute abdominal pain Hyperglycemia Morbid obesity Kidney stone on left side Continue IV abx and IVF Urology >going for cystoscopy today Plan discussed with: Patient Date of Service: Oct 30, 2024 Billing Provider: GRICELDA NICHOLSON MD Common Visit Codes: [id number] INP/OBS CARE(HIGH) GRICELDA NICHOLSON MD Oct 30, 2024 17:43
[2024-10-30] MEDS: ONDANSETRON HCL 4 MG/2 ML VIAL IV PRN (18:39)
[2024-10-30] MEDS: ONDANSETRON HCL 4 MG/2 ML VIAL ONE (18:52)
[2024-10-30] MEDS ORDERED: ONDANSETRON HCL 4 MG/2 ML VIAL IV ONE (19:00)
[2024-10-30] MEDS: METOCLOPRAMIDE HCL 5MG/ml INJ 2ml VIAL IV ONE (21:38)
[2024-10-31 01:00] VITALS: BP_SYST 109; BP_SYST 146; BP_DIAS 69; BP_DIAS 79; PULSE 54; PULSE 77; RESP 17; RESP 18; TEMP 97.2; TEMP 97.8; O2SAT 93; O2SAT 97
[2024-10-31 05:00] VITALS: BP 104/68; PULSE 95; RESP 18; TEMP 98.3; O2SAT 93
[2024-10-31 08:00] VITALS: PULSE 88; RESP 18; O2SAT 94
[2024-10-31 09:30] VITALS: BP 95/58; PULSE 88; RESP 18; TEMP 98.2; O2SAT 94
[2024-10-31 13:00] VITALS: BP 108/54; PULSE 87; RESP 18; TEMP 98.4; O2SAT 94
[2024-10-31] MEDS ORDERED: CIPR500T4 PO (13:40)
--- NOTE | 2024-11-07 04:36 | DVHDS2 ---
Discharge Summary Date of Admission Oct 28, 2024 at 21:55 Date of Discharge: Oct 31, 2024 Labs/Diagnostic Data: Laboratory Results Test 10/29/24 19:17 10/29/24 04:30 10/28/24 18:09 Prothrombin Time 10.6 sec (9.3-11.8) Prothrombin Time INR 1.00 (0.9-1.15) White Blood Count 9.9 10^3/uL (4.4-10.8) Red Blood Count 5.05 10^6/uL (4.5-5.90) Hemoglobin 14.8 g/dL (13.5-17.5) Hematocrit 43.0 % (41.0-53.0) Mean Corpuscular Volume 85.1 fL (80.0-100.0) Mean Corpuscular Hemoglobin 29.2 pg (28.0-32.0) Mean Corpuscular Hemoglobin Concent 34.4 g/dL (32.0-36.0) Red Cell Distribution Width 14.4 % (11.8-14.3) Platelet Count 240 10^3/uL (140-450) Mean Platelet Volume 9.0 fL (6.9-10.8) Neutrophils (%) (Auto) 72.0 % (37.0-80.0) Lymphocytes (%) (Auto) 18.4 % (10.0-50.0) Monocytes (%) (Auto) 7.8 % (0.0-12.0) Eosinophils (%) (Auto) 1.2 % (0.0-7.0) Basophils (%) (Auto) 0.6 % (0.0-2.0) Neutrophils # (Auto) 7.1 10 ^3/uL (1.6-8.6) Lymphocytes # (Auto) 1.8 10 ^3/uL (0.4-5.4) Monocytes # (Auto) 0.8 10 ^3/uL (0-1.3) Eosinophils # (Auto) 0.1 10 ^3/uL (0-0.8) Basophils # (Auto) 0.1 10 ^3/uL (0-0.2) Nucleated Red Blood Cells 0.1 % Sodium Level 143 mmol/L (136-145) Potassium Level 3.9 mmol/L (3.5-5.1) Chloride Level 105 mmol/L (98-107) Carbon Dioxide Level 27 mmol/L (20-31) Anion Gap 11 (5-15) Blood Urea Nitrogen 13 mg/dL (9-23) Creatinine 1.23 mg/dL (0.700-1.30) Glomerular Filtration Rate Calc 74 mL/min (>90) BUN/Creatinine Ratio 10.6 (10.0-20.0) Serum Glucose 107 mg/dL (74-106) Hemoglobin A1c 6.5 % A1C (<5.7) Calcium Level 9.9 mg/dL (8.7-10.4) Total Bilirubin 0.8 mg/dL (0.2-1.0) Aspartate Amino Transferase (AST) 31 U/L (13-40) Alanine Aminotransferase (ALT) 40 U/L (7-40) Alkaline Phosphatase 91 U/L (46-116) Total Protein 7.2 g/dL (5.7-8.2) Albumin 4.5 g/dL (3.2-4.8) Urine Color Light-orange (Yellow) Urine Clarity Turbid (Clear) Urine pH 5.5 (5.0-9.0) Urine Specific [place] 1.021 (1.001-1.035) Urine Protein 1+ (Negative) Urine Ketones Negative (Negative) Urine Blood 3+ /uL (Negative) Urine Nitrite Negative (Negative) Urine Bilirubin Negative (Negative) Urine Urobilinogen Normal mg/dL (Negative) Urine Leukocyte Esterase Negative /uL (Negative) Urine RBC 245 /hpf (0 - 3) Urine Microscopic WBC 4 /HPF (0-3) Urine Squamous Epithelial Cells None seen /hpf (<5) Urine Bacteria Few /hpf (None Seen) Urine Yeast (Budding) Occasional /hpf (None Urine Glucose Trace mg/dL (Normal) Other Laboratory Tests 10/29/24 04:30 Brief Hx & Hospital Course: 44-year-old male morbidly obese who denies past medical history presented to [facility] ED with complaint of left-sided flank pain. Patient reports symptoms progressively get worse with severe left-sided flank pain, nonradiating, rating 8/10 numeric scale, getting worse that prompted this visit. Patient was seen and evaluated in the ED, laboratory data shows WBC 8.0, platelets 267, sodium 143, potassium 4.1, BUN 12, creatinine 1.25, GFR 72, glucose 170, calcium 10.0, blood pressure 127/75, heart rate 68, temperature 97.8 F, O2 saturation 96% on room air. Abdomen/pelvis CT revealing punctuate nonobstructing calculus right kidney, 7-8 mm partially obstructing calculus mid left ureter, 4.6 cm fat stranding left inguinal hernia. Patient was given Toradol 30 mg IM x1, please see medication orders section in the computer. On my assessment, patient denied chest pain, no headache, no dizziness, no diaphoresis, no shortness of breath, no diarrhea, no nausea, no vomiting, no fever, no chills. Patient was admitted for further evaluation and medical management. Had cystoscopy and seen by urology who cleared for discharge Condition at Discharge: Good Final Diagnosis/Problems List Acute abdominal pain Hyperglycemia Morbid obesity Kidney stone on left side UTI sepsis due to UTI Discharge Disposition: Home Discharge Instruct/Medications Diet: Regular Activity: No Restrictions, As Tolerated Follow Up/Referral: PCP in 7 days Medications: ciprofloxacin Discharge Statement: "Patient was advised to return to the ER or call 911 if any headaches, dizziness, shortness of breath, chest pain, abdominal pain, bleeding, fevers, or worsening of medical condition. Patient was counseled about treatment plan, medications, possible side effects, patientverbalized understanding. All questions were answered to the best of my ability. This discharge took greater then 30 minutes in planning, reviewing documentation, counseling the patient, and discussing with other team members." ASSESSMENT ASSESSMENT Assessment UTI Left kidney stones Date of Service: Oct 31, 2024 Billing Provider: GRICELDA NICHOLSON MD Common Visit Codes: 95956-FOY/OBS DISCH DAY >30min GRICELDA NICHOLSON MD Nov 07, 2024 04:36
== END 2024-10-31 15:00 | disposition home or self-care (01) | DRG 660 ==
LOC: ER 17:38 → OVERFLOW 21:55 → WEST WING 21:55
PROVIDERS: ADMIT Hospitalist; ATTEND Hospitalist
PROC: 0TF7XZZ Fragmentation in Left Ureter, External Approach (ICD-10-PCS; principal; 2024-10-30 16:56)
PROC: 0T778DZ Dilation of Left Ureter with Intraluminal Device, Via Natural or Artificial Opening Endoscopic (ICD-10-PCS; 2024-10-30 16:56)
DX: N13.2 Hydronephrosis with renal and ureteral calculous obstruction (principal); Z68.43 Body mass index [BMI] 50.0-59.9, adult; E66.01 Morbid (severe) obesity due to excess calories; R73.9 Hyperglycemia, unspecified; K40.90 Unilateral inguinal hernia, without obstruction or gangrene, not specified as recurrent; Z82.49 Family history of ischemic heart disease and other diseases of the circulatory system
CPT/HCPCS: 36415; 74176; 80048; 80053; 81001; 83036; 85025; 85610; 86850; 86900; 86901; 96372; A4344; G0378; J1885; J2405

== ENCOUNTER → 2025-03-20 | Day surgery (SDC) | payer BC, OTHER ==
[2025-03-15 11:25] LABS: Hematocrit 46.0 % (41.0-53.0); Hemoglobin 15.4 g/dL (13.5-17.5); Mean Corpuscular Hemoglobin 28.5 pg (28.0-32.0); Mean Corpuscular Volume 84.9 fL (80.0-100.0); Nucleated Red Blood Cells % 0.1 %
[2025-03-15 11:33] LABS: Urine Budding Yeast FEW /hpf (None Seen); Urine Protein, UAD 2+ (Negative)
[2025-03-15 11:36] LABS: INR 0.96 (0.9-1.15); Partial Thromboplastin Time 25.4 SEC (24.5-34.5); Prothrombin Time 10.2 sec (9.3-11.8)
[2025-03-15 11:42] LABS: Albumin 4.6 g/dL (3.2-4.8); Alkaline Phosphatase 95 U/L (46-116); Anion Gap 10 (5-15); BUN/Creatinine Ratio 11.1 (10.0-20.0); Bilirubin, Total 0.6 mg/dL (0.2-1.0); Blood Urea Nitrogen 13 mg/dL (9-23); Calcium 9.9 mg/dL (8.7-10.4); Carbon Dioxide 28 mmol/L (20-31); Chloride 106 mmol/L (98-107); Potassium 4.3 mmol/L (3.5-5.1); Sodium 144 mmol/L (136-145); Total Protein 7.9 g/dL (5.7-8.2)
[2025-03-15 12:02] LABS: Alanine Aminotransferase 43 U/L (7-40); Glucose 130 mg/dL (74-106)
[~2025-03-20] VITALS: Ht 180.3 cm; Wt 170.1 kg
[~2025-03-20] MED LIST: ACETAMINOPHEN IV 1000 MG/100ML (10MG/ML) IV ONE; CIPROFLOXACIN 400MG/200ML 200 ML IV ONE; FAMOTIDINE (10MG/ML) 2ML VL IV ONE; GLYCOPYRROLATE 0.2 MG/ML 1ML VIAL ONE; HYDROmorphone HCL 2 MG/ML VL/or syr ONE; KETAMINE 50mg/ML 1ml syringe ONE; KETOROLAC TROMETH 30 MG/ML 1ML VIAL ONE; MIDAZOLAM HCL 2MG/2ML 2ml VIAL (1mg/ml) ONE; ONDANSETRON HCL 4 MG/2 ML VIAL IV PRN; ONDANSETRON HCL 4 MG/2 ML VIAL ONE; PROPOFOL 10 MG/ML 20 ML IV ONE; SUGAMMADEX 200mg/2ml Vial (100MG/ML) IV ONE; fentaNYL CITRATE 100 MCG/2 ML VL ONE
[2025-03-20] MEDS: IOHEXOL 300 MG/ML 100ML BOTTLE IJ ONE (08:23)
[2025-03-20 09:00] VITALS: PULSE 91; RESP 15; TEMP 97.4; O2SAT 96
--- NOTE | 2025-03-20 09:08 | DVHNC2 ---
Procedure - OPERATIVE REPORT Pre-op. Diagnosis: Ureteral stone - Left s/p Ureteral stent placement - Left Post-op. Diagnosis: Same as pre-op diagnosis Operation: Cystoscopy with left ureteral stent removal Left ureteroscopy/pyeloscopy, laser lithotripsy Anesthesia: General Indications: Patient underwent cystoscopy with left ureteral stent placement and ESWL on October 30, 2024 for 7 mm left mid ureteral calculus management. He has persistent left mid ureteral stone impacted in the wall of the ureter and left ureteral stent in-situ. He is here to undergo left ureteroscope epic laser lithotripsy and stent removal. The indications, risks, complications, alternatives and benefits of left uretero scope epic laser lithotripsy and stent removal were discussed. All questions were encouraged and answered. Patient is aware of risks/complications including but not limited to infection, bleeding, persistent pain, possible ureteral injury/ureteral stricture requiring additional surgical management, urethral injury, urethral stricture and meatal stenosis. Details of Procedure: After obtaining the consent, patient was taken to OR suite and underwent general anesthesia. Preop antibiotic was given. Timeout was performed and deemed to be correct. With the patient positioned in the lithotomy, the area of the genitalia prepped and draped in usual sterile fashion. 22 F Cystoscope was used to access the urethra and bladder. The existing Left ureteral stent was secured and removed. A sensor tip guide wire was advanced through the left ureter into the kidney. At this point I advanced 11x13 Fr 28 cm access sheet over the working wire all the way to the distal ureter under fluoroscopy control, then the inner sheet and the working wire was removed. Now the flexible ureteroscope was advanced through the access sheet. The stone was visualized. Now using a 200 micron laser fiber the stone was blasted into small fragments. At this point the ureteroscope was advanced into the kidney and the kidney was examined and small stone fragments were visualized and removed with a basket. No further stones we re seen in the kidney. Then antegrade ureteroscopy was performed and the entire length of the Left ureter was examined and no further stones were seen. The ureteroscope was removed in entirety and bladder was decompressed. Patient was placed in supine position in the OR table. Anesthesia was reversed, patient was extubated and transferred awake and in stable conditions to recovery room. Specimens: Old stent, Left Complications: None Findings: Left ureteral stone Fragmented stent was not replaced, as the ureter was patent ALECIA BARLOW MD Mar 20, 2025 09:08
--- NOTE | 2025-03-20 09:09 | DVHDS2 ---
New Physician D'charge PN Admitting Diagnosis Admitting Diagnosis Left ureteral calculus Left ureteral stent Discharge Diagnosis Same Operations or Procedures Left ureteroscopic laser lithotripsy and stent removal Reason(s) For Hospitalization Surgery Treatment Plan Discharge Condition of Discharge Good Disposition Home Discharge Instructions Diet: Regular Activity: Light activity Activity comment: As tolerated Medications: Given Follow Up Care Follow Up/Referral: One month Discharge Statement: "Patient was advised to return to the ER or call 911 if any headaches, dizziness, shortness of breath, chest pain, abdominal pain, bleeding, fevers, or worsening of medical condition. Patient was counseled about treatment plan, medications, possible side effects, patientverbalized understanding. All questions were answered to the best of my ability. This discharge took greater then 30 minutes in planning, reviewing doc umentation, counseling the patient, and discussing with other team members." ALECIA BARLOW MD Mar 20, 2025 09:09
--- NOTE | 2025-03-20 10:00 | DVH ---
C-ARM FLUOROSCOPY: PROCEDURE: left ureteroscopic laser lithotripsy and stent removal FLUOROSCOPY TIME: 32 sec DAP: 30.68 mgy FINDINGS: Spot intraoperative C arm radiographs demonstrating left ureteroscopic laser lithotripsy and stent re moval . IMPRESSION: Please refer to surgical report for detailed findings.
[2025-03-20 10:05] VITALS: BP 110/59; PULSE 94; RESP 14; O2SAT 97
== END | disposition home or self-care (01) ==
LOC: SUR 06:10
PROVIDERS: ATTEND Urology
DX: N13.2 Hydronephrosis with renal and ureteral calculous obstruction (principal); I10 Essential (primary) hypertension; Z79.899 Other long term (current) drug therapy; Z98.890 Other specified postprocedural states
CPT/HCPCS: 36415; 52353; 74018; 80053; 81001; 85025; 85610; 85730; 87086; 88305; J0744; J1100; J1171; J1885; J2250; J2405; J2704; J3010; J3490; Q9967; 76000